=== PATIENT | male | born 1995 | race Caucasian/White ===

== ENCOUNTER 2017-07-16 09:39 | Emergency (ER) | payer SELFPAY ==
[~2017-07-16] VITALS: Ht 185.4 cm; Wt 85.0 kg
[2017-07-16 09:45] VITALS: BP 109/72
== END 2017-07-16 10:59 | disposition home or self-care (01) ==
LOC: ED 09:59
DX: S83.92XA Sprain of unspecified site of left knee, initial encounter (principal); X50.1XXA Overexertion from prolonged static or awkward postures, initial encounter; Y93.89 Activity, other specified; Y99.8 Other external cause status; Y92.830 Public park as the place of occurrence of the external cause
CPT/HCPCS: 99284

== ENCOUNTER 2018-02-13 17:37 | Emergency (ER) | payer OTHER ==
[~2018-02-13] VITALS: Ht 185.4 cm; Wt 79.7 kg
[2018-02-13 17:44] VITALS: BP 110/73
== END 2018-02-13 19:41 | disposition home or self-care (01) ==
LOC: ED 19:21
DX: S93.491A Sprain of other ligament of right ankle, initial encounter (principal); F17.200 Nicotine dependence, unspecified, uncomplicated; X50.1XXA Overexertion from prolonged static or awkward postures, initial encounter; Y93.89 Activity, other specified; Y92.89 Other specified places as the place of occurrence of the external cause; Y99.0 Civilian activity done for income or pay
CPT/HCPCS: 99284

== ENCOUNTER 2018-02-18 15:33 | Emergency (ER) | payer OTHER ==
[~2018-02-18] VITALS: Ht 185.4 cm; Wt 82.1 kg
[2018-02-18 15:36] VITALS: BP 111/70
== END 2018-02-18 16:01 | disposition home or self-care (01) ==
LOC: ED 15:55
DX: S99.82 Other specified injuries of foot (principal); X58.XXXD Exposure to other specified factors, subsequent encounter
CPT/HCPCS: 99281

== ENCOUNTER 2018-07-08 14:42 | Emergency (ER) | payer SELFPAY ==
[~2018-07-08] VITALS: Ht 185.4 cm; Wt 84.5 kg
[2018-07-08 15:26] LABS: BASOPHILS # (AUTO) 0.04 x10^3/uL (0-0.1); BASOPHILS % (AUTO) 0 % (0-1); EOSINOPHILS # (AUTO) 0.15 x10^3/uL (0-0.4); EOSINOPHILS % (AUTO) 1 % (1-7); LYMPHOCYTES # (AUTO) 1.44 x10^3/uL (1-3.4); LYMPHOCYTES % (AUTO) 8 % (22-44); MD NO; MEAN CORPUSCULAR HEMOGLOBIN 28.7 pg (27.5-34.5); MEAN CORPUSCULAR HGB CONC 33.4 g/dL (33.2-36.2); MEAN PLATELET VOLUME 8.1 fL (7.4-10.4); MONOCYTES # (AUTO) 1.23 x10^3/uL (0.2-0.8); MONOCYTES % (AUTO) 7 % (2-9); NEUTROPHILS # (AUTO) 14.91 x10^3/uL (1.8-6.8); NEUTROPHILS % (AUTO) 84 % (42-75); PLATELET COUNT 261 x10^3/uL (130-400); RED BLOOD COUNT 5.56 x10^6/uL (4.38-5.82); RED CELL DISTRIBUTION WIDTH 13.7 % (9.4-14.8)
[2018-07-08] MEDS ORDERED: DEXAMETHASONE 4 MG/ML, 1ML ONE (15:26)
[2018-07-08] MEDS ORDERED: SODIUM CHLORIDE FLUSH 10ML SYR IVF ONE (15:30)
[2018-07-08] MEDS ORDERED: DEXAMETHASONE 4 MG/ML, 1ML IVPush ONE (15:30)
[2018-07-08] MEDS ORDERED: SODIUM CHLORIDE 0.9% 1,000ML IVBOLUS ONE (15:30)
[2018-07-08 15:33] LABS: ANION GAP 7 mmol/L (5-15); CHLORIDE 105 mmol/L (98-107); CREATININE 1.21 mg/dL (0.7-1.3)
[2018-07-08] MEDS ORDERED: KETOROLAC 30 MG/1 ML IVPush ONE (16:00)
[2018-07-08] MEDS ORDERED: AMPICILLIN/SULBACTAM 3 GM in SODIUM CHLORIDE 0.9% 100 ML IV ONE (16:00)
[2018-07-08] MEDS ORDERED: KETOROLAC 30 MG/1 ML ONE (16:13)
[2018-07-08 17:01] VITALS: BP 126/74
== END 2018-07-08 17:13 | disposition home or self-care (01) ==
LOC: ED 16:54
DX: J03.00 Acute streptococcal tonsillitis, unspecified (principal); H57.13 Ocular pain, bilateral
CPT/HCPCS: 36415; 80048; 82040; 85025; 87880; 96365; 96375; 99284; J0295; J1100; J1885; J7030

== ENCOUNTER 2019-03-21 22:36 | Emergency (ER) | payer SELFPAY ==
[~2019-03-21] VITALS: Ht 185.4 cm; Wt 84.9 kg
[2019-03-21 23:58] VITALS: BP 110/68
== END 2019-03-22 00:08 | disposition home or self-care (01) ==
LOC: ED 23:59
DX: L02.01 Cutaneous abscess of face (principal); F17.200 Nicotine dependence, unspecified, uncomplicated
CPT/HCPCS: 99283